=== PATIENT | female | born 1995 | race Caucasian/White ===

== ENCOUNTER 2016-11-12 11:35 | Emergency (ER) | payer OTHER ==
[~2016-11-12] VITALS: Ht 160 cm; Wt 79.7 kg
[2016-11-12 11:37] VITALS: TEMP 36.8; Ht 160 cm; Wt 79.7 kg
[2016-11-12] MEDS ORDERED: BCPILLS PO (12:08)
[2016-11-12] MEDS ORDERED: KETOROLAC TROMETHAMINE 30 MG/ML VIAL IV STA (12:36)
[2016-11-12] MEDS ORDERED: SODIUM CHLORIDE 0.9% 1000ML 2,000 ML IV STA (12:36)
[2016-11-12 12:39] LABS: BASO % 0.1 %; EOS % 0.4 %; HEMATOCRIT 39.1 % (37-47); IG% 0.3 %; LYMPH % 22.9 %; LYMPH ABS # 2.81 K/uL (1.2-3.4); MEAN CELL VOLUME 80.8 fL (80-100); MEAN CORPUSCULAR HEMOGLOBIN 27.1 pg (25-34); MEAN CORPUSCULAR HGB CONC 33.5 g/dl (32-36); MONO % 4.5 %; NEUT % 71.8 %; PLATELET COUNT 310 K/uL (130-400); RED BLOOD COUNT 4.84 M/uL (4.2-5.4); WHITE BLOOD COUNT 12.29 K/uL (4.8-10.8)
[2016-11-12 12:40] LABS: BASO ABS # 0.01 K/uL (0-0.2); COMPLETE YES
[2016-11-12 12:49] LABS: URINE APPEARANCE CLOUDY (CLEAR); URINE BILIRUBIN NEG (NEG); URINE COLOR YELLOW; URINE EPITHELIAL CELL AUTO >30 /lpf (0-5); URINE NITRITE NEG (NEG); URINE PH 8.5 (4.5-7.5); URINE SPECIFIC GRAVITY 1.022 (1.000-1.030); UROBILINOGEN NEG (NEG); ZZUR CULT IF INDIC CLEAN CATCH YES
[2016-11-12 12:57] LABS: CALCIUM 9.8 mg/dl (8.5-10.1); CREATININE 0.73 mg/dl (0.60-1.20); POTASSIUM 3.8 mmol/L (3.5-5.1)
[2016-11-12 13:12] LABS: MANUAL MICROSCOPIC REQUIRED? NO; REVIEW REQ? NO; SULFASALICYLIC ACID NEG (NEG)
--- NOTE | 2016-11-12 14:26 | DIAGNOSTIC IMAGING REPORT ---
ABDOMINAL ULTRASOUND, RIGHT UPPER QUADRANT HISTORY: epigastric abdominal pain w/ lap cholecystectomy in august . COMPARISON: None. FINDINGS: Pancreas: The pancreas demonstrates a normal echotexture. Liver: Unremarkable. Gallbladder: The gallbladder is surgically absent. CBD: 6 mm. Right kidney: No hydronephrosis. IMPRESSION: Cholecystectomy. Otherwise, no significant abnormality identified within the right upper quadrant. Electronically signed by: Delonte Rincon M.D. 11/12/2016 2:25 PM Dictated Date/Time: 11/12/2016 2:24 PM
[2016-11-12 15:02] VITALS: BP 119/73; PULSE 88; O2SAT 100
[2016-11-12] MEDS ORDERED: ONDA4TAB65 PO (15:30)
[2016-11-12] MEDS ORDERED: CEPHALEXIN MONOHYDRATE 250 MG CAP PO ONE (15:30)
[2016-11-12] MEDS ORDERED: CEPH500C PO (15:30)
--- NOTE | 2016-11-12 19:30 | EMERGENCY ROOM VISIT NOTE ---
History Report prepared by Richard: Meg Brady Under the Supervision of: Dr. Nikita Painting D.O. First contact with patient: 12:05 Chief Complaint: VOMITING Stated Complaint: REC. SURGERY/VOMITING ALL NIGHT, WEAKNESS Nursing Triage Summary: Pt reports, "I went to bed with cold sx and woke up all throughout the night with vomiting. The real reason I am here is because I had surgery over the summer and had my gall bladder removed. I had similar sx then so I just want to make sure everything is okay." Upper abd pain. Denies diarrhea. History of Present Illness The patient is a 21 year old female who presents to the Emergency Room with complaints of resolved vomiting last night. The patient went to bed last night with cough and nasal congestion. She thought that she had a cold. She woke up in the middle of the night and began vomiting. She was vomiting through the night. The vomiting has resolved as of this morning. She no longer has any nausea. She feels weak. The patient came to the ED because she was concerned that this was related to her cholecystectomy 2 months ago. She has some upper abdominal pain which feels like it might be related to her vomiting. She notes that she was prediabetes. She has been feeling thirsty all the time. She has been able to keep water down. She had not eaten much today. She denies any dysuria or fever. Her last menstrual period was last week. She still has her appendix. Source of History: patient Onset: last night Position: other (global) Quality: other (vomiting) Timing: resolved Associated Symptoms: + cough, + abdominal pain, + weakness, No fevers, No nausea, No urinary symptoms Note: Pt reports nasal congestion. Review of Systems See HPI for pertinent positives & negatives. A total of 10 systems reviewed and were otherwise negative. Past Medical & Surgical Surgical Problems: (1) S/P cholecystectomy Family History Diabetes mellitus Social History Smoking Status: Never Smoker Alcohol Use: occasionally Housing Status: lives with roommate Current/Historical Medications Scheduled Control Pills ( Control Pills), 1 TAB PO DAILY Cephalexin Monohydrate (Keflex), 500 MG PO TID Ondansetron Hcl (Zofran), 4 MG PO TID Allergies Coded Allergies: No Known Allergies (Unverified , 11/12/16) Physical Exam Vital Signs Date Time Temp Pulse Resp B/P (MAP) Pulse Ox O2 Delivery O2 Flow Rate FiO2 11/12/16 15:02 88 18 119/73 100 Room Air 11/12/16 13:03 78 20 112/70 98 Room Air 11/12/16 11:37 36.8 111 18 132/88 97 Room Air Physical Exam GENERAL: sitting up in bed, typing on the computer, alert, well appearing, well nourished, no distress, non-toxic EYE EXAM: normal conjunctiva OROPHARYNX: no exudate, no erythema, lips, buccal mucosa, and tongue normal and mucous membranes are moist NECK: supple, no nuchal rigidity, no adenopathy, non-tender LUNGS: Clear to auscultation. Normal chest wall mechanics HEART: no murmurs, S1 normal and S2 normal ABDOMEN: abdomen soft, minimal tenderness to the epigastric, normo-active bowel sounds, no masses, no rebound or guarding. BACK: Back is symmetrical on inspection and there is no deformity, no midline tenderness, no CVA tenderness. SKIN: no rashes and no bruising UPPER EXTREMITIES: upper extremities are grossly normal. LOWER EXTREMITIES: No pitting edema. NEURO EXAM: Normal sensorium, cranial nerves II-XII grossly intact, normal speech, no gross weakness of arms, no gross weakness of legs. Medical Decision & Procedures ER Provider Diagnostic Interpretation: Radiology results as stated below per my review and the radiologist's interpretation: ABDOMINAL ULTRASOUND, RIGHT UPPER QUADRANT HISTORY: epigastric abdominal pain w/ lap cholecystectomy in august . COMPARISON: None. FINDINGS: Pancreas: The pancreas demonstrates a normal echotexture. Liver: Unremarkable. Gallbladder: The gallbladder is surgically absent. CBD: 6 mm. Right kidney: No hydronephrosis. IMPRESSION: Cholecystectomy. Otherwise, no significant abnormality identified within the right upper quadrant. Electronically signed by: Delonte Rincon M.D. 11/12/2016 2:25 PM Dictated Date/Time: 11/12/2016 2:24 PM Laboratory Results 11/12/16 12:20 Red Blood Count 4.84, Mean Corpuscular Volume 80.8, Mean Corpuscular Hemoglobin 27.1, Mean Corpuscular Hemoglobin Concent 33.5, Mean Platelet Volume 10.0, Neutrophils (%) (Auto) 71.8, Lymphocytes (%) (Auto) 22.9, Monocytes (%) (Auto) 4.5, Eosinophils (%) (Auto) 0.4, Basophils (%) (Auto) 0.1, Neutrophils # (Auto) 8.83, Lymphocytes # (Auto) 2.81, Monocytes # (Auto) 0.55, Eosinophils # (Auto) 0.05, Basophils # (Auto) 0.01 11/12/16 12:20 Test 11/12/16 12:20 White Blood Count 12.29 K/uL (4.8-10.8) Red Blood Count 4.84 M/uL (4.2-5.4) Hemoglobin 13.1 g/dL (12.0-16.0) Hematocrit 39.1 % (37-47) Mean Corpuscular Volume 80.8 fL (80-100) Mean Corpuscular Hemoglobin 27.1 pg (25-34) Mean Corpuscular Hemoglobin Concent 33.5 g/dl (32-36) Platelet Count 310 K/uL (130-400) Mean Platelet Volume 10.0 fL (7.4-10.4) Neutrophils (%) (Auto) 71.8 % Lymphocytes (%) (Auto) 22.9 % Monocytes (%) (Auto) 4.5 % Eosinophils (%) (Auto) 0.4 % Basophils (%) (Auto) 0.1 % Neutrophils # (Auto) 8.83 K/uL (1.4-6.5) Lymphocytes # (Auto) 2.81 K/uL (1.2-3.4) Monocytes # (Auto) 0.55 K/uL (0.11-0.59) Eosinophils # (Auto) 0.05 K/uL (0-0.5) Basophils # (Auto) 0.01 K/uL (0-0.2) RDW Standard Deviation 44.4 fL (36.4-46.3) RDW Coefficient of Variation 15.0 % (11.5-14.5) Immature Granulocyte % (Auto) 0.3 % Immature Granulocyte # (Auto) 0.04 K/uL (0.00-0.02) Urine Color YELLOW Urine Appearance CLOUDY (CLEAR) Urine pH 8.5 (4.5-7.5) Urine Specific [place] 1.022 (1.000-1.030) Urine Protein NEG (NEG) Urine Glucose (UA) NEG (NEG) Urine Ketones NEG (NEG) Urine Occult Blood NEG (NEG) Urine Nitrite NEG (NEG) Urine Bilirubin NEG (NEG) Urine Urobilinogen NEG (NEG) Urine Leukocyte Esterase TRACE (NEG) Urine WBC (Auto) 5-10 /hpf (0-5) Urine RBC (Auto) 0-4 /hpf (0-4) Urine Hyaline Casts (Auto) 10-30 /lpf (0-5) Urine Epithelial Cells (Auto) >30 /lpf (0-5) Urine Bacteria (Auto) 3+ (NEG) Urine Test NEG (NEG) Anion Gap 6.0 mmol/L (3-11) Est Creatinine Clear Calc Drug Dose 122.9 ml/min Estimated GFR () 137.4 Estimated GFR (Non- 118.6 BUN/Creatinine Ratio 11.0 (10-20) Calcium Level 9.8 mg/dl (8.5-10.1) Total Bilirubin 0.9 mg/dl (0.2-1) Direct Bilirubin 0.2 mg/dl (0-0.2) Aspartate Amino Transf (AST/SGOT) 15 U/L (15-37) Alanine Aminotransferase (ALT/SGPT) 23 U/L (12-78) Alkaline Phosphatase 78 U/L (45-117) Total Protein 8.0 gm/dl (6.4-8.2) Albumin 4.0 gm/dl (3.4-5.0) Lipase 63 U/L (73-393) Laboratory results per my review. Medications Administered Medications (Trade) Dose Ordered Sig/Porfirio Route Start Time Stop Time Status Last Admin Dose Admin Sodium Chloride 2,000 ml @ 999 mls/hr Q2H1M STAT IV 11/12/16 12:36 11/12/16 14:36 DC 11/12/16 13:03 999 MLS/HR Cephalexin Monohydrate (Keflex Cap) 500 mg NOW ONCE PO 11/12/16 15:30 11/12/16 15:31 DC 11/12/16 15:37 500 MG ED Course ED COURSE: Vital signs were reviewed and showed tachycardia. The patients medical record was reviewed The above diagnostic studies were performed and reviewed. ED treatments and interventions as stated above. 1231: The patient was evaluated in room C4. A complete history and physical examination was performed. 1236: NSS 2000 ml @ 999 mls/hr IV. 1520: Upon reevaluation, the patient is feeling better. She does admit to urinary frequency. I discussed my findings with the patient and she understands and agrees with the treatment plan. Based on the patients age, coexisting illnesses, exam and lab findings the decision to treat as an outpatient was made. The patient remained stable while under my care. The patient appeared well at the time of discharge. 1530: Keflex Cap 500 mg PO. Medical Decision Differential diagnoses includes but is not limited to gastritis, peptic ulcer disease, GERD, gallbladder disease, pancreatitis, small bowel obstruction, acute coronary syndrome, pericarditis, ischemic bowel, irritable bowel disease, irritable bowel syndrome, appendicitis, diverticulitis, malignancy, hernia, urinary tract infection, torsion, /ectopic , perforation, trauma, infectious. Patient is a 21-year-old female that presents to ER following not feeling well last night and vomiting. She has the vomiting has stopped this morning. She has been keeping fluids down. She has not eaten. Normal LMP. She has she is feeling slightly better. She is concerned this could be her gallbladder. Labs show a mild leukocytosis likely secondary to vomiting. CBC: BMP, LFTs, bilirubin lipase is unremarkable. UA has multiple epithelial cells, bacteria, white cells and leukocytes. was negative. Patient does have urinary urgency. Patient was given Keflex and discharged follow-up with PCP. Discussed with Pt concerning signs and symptoms to watch out for. Pt was instructed to follow up with their PCP and discussed with the patient their option to return to the ED at anytime for persistent or worsening symptoms. The appropriate anticipatory guidance and out-patient management, including indications for return to the emergency department, were explained at length to the patient and understood. Medication Reconcilliation Current Medication List: was personally reviewed by me Blood Pressure Screening Patient's blood pressure: Normal blood pressure Blood pressure disposition: Did not require urgent referral Impression Primary Impression: Vomiting Additional Impression: UTI (urinary tract infection) Scribe Attestation The scribe's documentation has been prepared under my direction and personally reviewed by me in its entirety. I confirm that the note above accurately reflects all work, treatment, procedures, and medical decision making performed by me. Departure Information Dispostion Home / Self-Care Prescriptions Cephalexin Monohydrate (Keflex) 500 Mg Cap 500 MG PO TID for 7 Days, CAP Prov: Nikita Painting, DO 11/12/16 Ondansetron Hcl (ZOFRAN) 4 Mg Tab 4 MG PO TID for nausea, #30 TAB Prov: Nikita Painting, DO 11/12/16 Referrals No Doctor, Assigned (PCP) Forms HOME CARE DOCUMENTATION FORM, IMPORTANT VISIT INFORMATION Patient Instructions ED Nausea Vomiting, ED UTI Cystitis Female, My [facility] Additional Instructions Please follow up with your primary care doctor or if you are a student, [facility] with in the next 24 hours. Any worsening of your symptoms, please return to the ED immediately. This includes any fevers greater than 100.4, worsening pain, chest pain, shortness breath, persistent nausea, vomiting, unable to eat or drink, or any other concerning signs or symptoms from your standpoint. Please take the antibiotics as prescribed. Problem Qualifiers Primary Impression: Vomiting Vomiting type: unspecified Vomiting Intractability: unspecified Nausea presence: unspecified Qualified Codes: R11.10 - Vomiting, unspecified Additional Impression: UTI (urinary tract infection) Urinary tract infection type: acute cystitis Hematuria presence: with hematuria Qualified Codes: N30.01 - Acute cystitis with hematuria
== END 2016-11-12 15:42 | disposition home or self-care (01) ==
LOC: C.EDB 11:38 → C.EDC 15:42
DX: R11.10 Vomiting, unspecified (principal); N30.01 Acute cystitis with hematuria; Z83.3 Family history of diabetes mellitus; Z79.3 Long term (current) use of hormonal contraceptives